=== PATIENT | male | born 1985 | race Caucasian/White ===

== ENCOUNTER 2021-03-19 14:40 | Outpatient (CLI) | payer MEDICAID | END 2021-03-19 14:41 | disposition critical access hospital (66) | LOC: EMS 14:40 | DX: Z04.1 Encounter for examination and observation following transport accident (principal); M25.522 Pain in left elbow | CPT/HCPCS: A0425; A0429; A0999 ==

== ENCOUNTER 2021-03-19 14:55 | Emergency (ER) | payer MEDICAID ==
[2021-03-19] MEDS ORDERED: IBUPROFEN 800 MG TABLET PO STA (15:27)
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
[2021-03-19 17:20] VITALS: BP 125/80
== END 2021-03-19 17:24 | disposition home or self-care (01) ==
LOC: EDBD → ED 14:55
DX: S50.02XA Contusion of left elbow, initial encounter (principal); S63.602A Unspecified sprain of left thumb, initial encounter; V22.4XXA Motorcycle driver injured in collision with two- or three-wheeled motor vehicle in traffic accident, initial encounter; Y93.55 Activity, bike riding
CPT/HCPCS: 73080; 73110; 73130; 99283; 99284; A9270